=== PATIENT | female | born 1990 | race American Indian/Alaskan Native ===

== ENCOUNTER 2017-12-11 09:17 | Emergency (ER) | payer MEDICAID, OTHER ==
[2017-12-11 09:29] VITALS: O2SAT 100
[2017-12-11 10:26] LABS: BASO # 0.1 K/uL (0.0-0.2); EOS # 0.1 K/uL (0.0-0.7); HEMOGLOBIN 12.4 g/dL (11.0-16.0); LYMPH # 1.9 K/uL (1.0-4.3); LYMPH % 25.7 % (20.0-40.0); MEAN CELL VOLUME 98.3 fL (81.0-99.0); MEAN CORPUSCULAR HEMOGLOBIN 33.1 pg (27.0-31.0); MEAN CORPUSCULAR HGB CONC 33.7 g/dL (33.0-37.0); MEAN PLATELET VOLUME 8.2 fL (7.2-11.7); MONO # 0.7 K/uL (0.0-0.8); MONO % 10.1 % (0.0-10.0); NEUT # 4.5 K/uL (1.8-7.0); NEUT % 61.2 % (50.0-75.0); NRBC % 0.2 % (0.0-2.0); RBC 3.74 Mil/uL (3.80-5.20); RED CELL DISTRIBUTION WIDTH 13.7 % (11.5-14.5); WHITE BLOOD COUNT 7.3 K/uL (4.8-10.8)
[2017-12-11 10:30] LABS: SQUAMOUS EPITHIAL 5 /hpf (0-5); URINE BILIRUBIN NEGATIVE (NEGATIVE); URINE BLOOD 1+ (NEGATIVE); URINE CLARITY Hazy (Clear); URINE COLOR Yellow (YELLOW); URINE GLUCOSE (UA) NORMAL (Normal); URINE LEUKOCYTE ESTERASE TRACE Leu/uL (Negative); URINE PROTEIN NEGATIVE (NEGATIVE); URINE UROBILINOGEN NORMAL mg/dL (0.2-1.0)
[2017-12-11 10:42] LABS: BLOOD UREA NITROGEN 10 mg/dL (7-17); CALCIUM 9.1 mg/dl (8.6-10.4); GFR NON-AFRICAN AMERICAN > 60
[2017-12-11 10:48] LABS: ALB/GLOB RATIO 1.1 (1.0-2.1); ALBUMIN 4.3 g/dL (3.5-5.0); ALT/SGPT 9 U/L (9-52); AST/SGOT 34 U/L (14-36)
--- NOTE | 2017-12-11 12:30 | C.PDOC ---
History Of Present Illness 27 year old female presents to the ED for evaluation of lower abdominal pain that has been intermittent for 2 weeks. Patient states her pain is sometimes sharp and worsened last night. Patient notes symptoms feel similar to when she had a prior ectopic . Patient denies fever, chills, nausea, vomiting, diarrhea, back pain, changes in eating habits. LMP 10/10/17. Patient is [id number] Time Seen by Provider: 12/11/17 10:26 Chief Complaint (Nursing): Abdominal Pain History Per: Patient History/Exam Limitations: no limitations Onset/Duration Of Symptoms: Intermittent Episodes (two weeks ) Current Symptoms Are (Timing): Worse Location Of Pain/Discomfort: Other (lower abdomen ) Radiation Of Pain To:: None Quality Of Discomfort: "Pain" Associated Symptoms: denies: Fever, Chills, Nausea, Vomiting Additional History Per: Patient Abnormal Vaginal Bleeding: No Last Menstral Period: 10/09/17 : 4 Para: 1 Miscarriage: 2 Past Medical History Reviewed: Historical Data, Nursing Documentation, Vital Signs Vital Signs: Last Vital Signs Temp 97.9 F 12/11/17 11:38 Pulse 86 12/11/17 11:38 Resp 20 12/11/17 11:38 BP 105/65 12/11/17 11:38 Pulse Ox 100 12/11/17 11:38 - Medical History PMH: No Chronic Diseases Surgical History: No Surg Hx Family History: States: Unknown Family Hx - Social History Hx Tobacco Use: No Hx Alcohol Use: No Hx Substance Use: No - Immunization History Hx Tetanus Toxoid Vaccination: No Hx Influenza Vaccination: No Hx Pneumococcal Vaccination: No Review Of Systems Constitutional: Negative for: Fever, Chills Eyes: Negative for: Pain ENT: Negative for: Ear Pain Cardiovascular: Negative for: Chest Pain, Palpitations Respiratory: Negative for: Cough, Shortness of Breath Gastrointestinal: Positive for: Abdominal Pain. Negative for: Nausea, Vomiting, Diarrhea Musculoskeletal: Negative for: Neck Pain, Back Pain Skin: Negative for: Rash, Lesions Neurological: Negative for: Weakness, Numbness Physical Exam - Physical Exam Appears: Non-toxic, No Acute Distress Skin: Normal Color, Warm, Dry, No Rash Head: Atraumatic, Normacephalic Eye(s): bilateral: Normal Inspection Oral Mucosa: Moist Neck: Supple Chest: Symmetrical, No Deformity, No Tenderness Cardiovascular: Rhythm Regular, No Murmur Respiratory: Normal Breath Sounds, No Rales, No Rhonchi, No Wheezing Gastrointestinal/Abdominal: Soft, Tenderness (lower, right>left ), Guarding (mild ), No Rebound Extremity: Normal ROM, Capillary Refill (less than 2 seconds ), No Swelling Neurological/Psych: Oriented x3, Normal Speech, Normal Cognition, Normal Motor Gait: Steady ED Course And Treatment - Laboratory Results Result Diagrams: 12/11/17 10:16 12/11/17 10:16 O2 Sat by Pulse Oximetry: 100 (on RA ) Pulse Ox Interpretation: Normal Medical Decision Making Medical Decision Making: Progress: Bloodwork, urinalysis, OB Transvaginal Ultrasound ordered and reviewed. Tylenol PO given. Patient was found to have (+) ectopic . The case was discussed with Dr. Neville (OBGYN oncjulian) who has evaluated the patient at bedside and states the patient will need admission to the OR. At 1530, the patient is now refusing admission and wishes to the leave the hospital. Risks of leaving were explained to the patient and OBGYN has discussed case with patient as well. The patient is still refusing. Disposition - Disposition Disposition: AGAINST MEDICAL ADVICE Disposition Time: 15:30 Condition: STABLE Additional Instructions: D/W pt in detail the severity of her condition of possible cornual ectopic . Pt did not want to consent to surgery and is going to sign out against medical advice. Pt has childcare issues and states she will come to the hospital in the morning. D/W pt again about her condition and she still did not want to stay. 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 - Scribe Statement The provider has reviewed the documentation as recorded by the Scribe (Lilly Mathews) All medical record entries made by the Scribe were at my direction and personally dictated by me. I have reviewed the chart and agree that the record accurately reflects my personal performance of the history, physical exam, medical decision making, and the department course for this patient. I have also personally directed, reviewed, and agree with the discharge instructions and disposition.
[2017-12-11 13:00] VITALS: RESP 18; TEMP 99.2
--- NOTE | 2017-12-11 13:58 | US ---
Date of service: 12/11/2017 HISTORY: pelvic pain, r/o ectopic. Last which appears reported 10/10/2017 suggesting an estimated gestational age of 8 weeks 6 days. COMPARISON: None available. TECHNIQUE: Transabdominal and transvaginal pelvic ultrasound was performed with longitudinal and transverse images submitted for interpretation. FINDINGS: UTERUS: Measures 10.1 x 5.5 x 7.7 cm. Uterus is mildly enlarged and anteverted. Irregular hypervascular changes are identified at the left side of the myometrium superiorly, where the left fallopian tube would join. Circular hyperechoic tissue is appreciated with questionable fluid seen centrally and additional soft tissue. This abnormal soft tissue measures 3.1 x 3.2 x 3.3 cm with an irregular cystic core measuring 0.7 x 1.5 x 1.1 cm, mean diameter 1.1 cm. This hyperechoic tissue is hypervascular on color per ultrasound. No pole is definitive or yolk sac within this cystic core. No intrauterine gestation is appreciated within the endometrial cavity in this suspicious for an ectopic gestation at the lateral cornua/junction with left fallopian tube year old. Further clinical correlation is recommended. ENDOMETRIUM: Measures 7.6 mm in diameter. Nonfocal but no intrauterine gestation identified in the endometrial cavity. CERVIX: A nabothian cyst is identified at the cervix posteriorly in with the cervix normal in length at 3.3 cm. Closed internal os. RIGHT OVARY: Measures 2.81.6 x 2.7 cm. No solid mass. Normal flow. LEFT OVARY: Measures 3.6 x 2.3 x 3.8 cm. No solid mass. Normal flow. 1.8 cm cyst is identified in the left ovary likely reflecting corpus luteum cyst. FREE FLUID: Likely physiologic fluid is seen the cul-de-sac inferiorly. OTHER FINDINGS: None. IMPRESSION: Findings suspicious for an ectopic gestation at the lateral left cornua/left fallopian tubal junction. No intrauterine gestation identified at the endometrial cavity. The ovaries identified separate from this suspicious ectopic pattern. Further clinical correlation is advised. Trace fluid seen the cul-de-sac which is anechoic and not reflective of hemoperitoneum. Please see discussion above. Findings discussed with Dr. Mai on with written down and read back verification 12/11/2017 1:40 p.m..
[2017-12-11 15:19] LABS: INR 1.4; PROTHROMBIN TIME 15.5 SECONDS (9.7-12.2)
[2017-12-11 15:33] VITALS: BP 133/85; PULSE 84
--- NOTE | 2017-12-11 17:02 | C.PDOC ---
History Of Present Illness 27 yo presenting to the ED with abdominal pain for several weeks and missed menses since Oct. Pt found to have suspected ectopic and possible cornual ectopic. Beta >40K Time Seen by Provider: 12/11/17 10:26 Chief Complaint (Nursing): Abdominal Pain History Per: Patient Pain Scale Rating Of: 7 Location Of Pain/Discomfort: RLQ Past Medical History Vital Signs: Last Vital Signs Temp 99.2 F 12/11/17 15:32 Pulse 84 12/11/17 15:32 Resp 18 12/11/17 15:32 BP 133/85 12/11/17 15:32 Pulse Ox 100 12/11/17 15:39 - Medical History PMH: No Chronic Diseases Surgical History: No Surg Hx Family History: States: Unknown Family Hx - Social History Hx Tobacco Use: No Hx Alcohol Use: No Hx Substance Use: No - Immunization History Hx Tetanus Toxoid Vaccination: No Hx Influenza Vaccination: No Hx Pneumococcal Vaccination: No Physical Exam - Physical Exam Additional Physical Exam Comments: Left Lower quadrant pain to deep palpation ED Course And Treatment - Laboratory Results Result Diagrams: 12/11/17 10:16 12/11/17 10:16 O2 Sat by Pulse Oximetry: 100 (on RA ) Disposition Discussed With : Efe Neville - Disposition Disposition Time: 00:45 Condition: STABLE Additional Instructions: D/W pt in detail the severity of her condition of possible cornual ectopic . Pt did not want to consent to surgery and is going to sign out against medical advice. Pt has childcare issues and states she will come to the hospital in the morning. D/W pt again about her condition and she still did not want to stay. Pt signed out AMA Forms: [employer] (Dutch) - Clinical Impression Clinical Impression: Ectopic
== END 2017-12-11 15:35 | disposition left against medical advice (07) ==
LOC: C.ER 09:17 → C.SDS 14:45 → C.ER 15:35
DX: O00.90 Unspecified ectopic pregnancy without intrauterine pregnancy (principal)

== ENCOUNTER 2017-12-12 11:32 | Emergency (ER) | payer OTHER ==
[2017-12-12 13:05] LABS: BASO % 0.5 % (0.0-2.0); EOS # 0.1 K/uL (0.0-0.7); EOS % 0.9 % (0.0-4.0); HEMOGLOBIN 12.7 g/dL (11.0-16.0); LYMPH # 2.9 K/uL (1.0-4.3); LYMPH % 33.9 % (20.0-40.0); MEAN CELL VOLUME 99.3 fL (81.0-99.0); MEAN CORPUSCULAR HEMOGLOBIN 33.1 pg (27.0-31.0); MEAN CORPUSCULAR HGB CONC 33.4 g/dL (33.0-37.0); MONO # 1.1 K/uL (0.0-0.8); MONO % 12.2 % (0.0-10.0); NEUT # 4.5 K/uL (1.8-7.0); NEUT % 52.5 % (50.0-75.0); NRBC % 0.1 % (0.0-2.0); RBC 3.85 Mil/uL (3.80-5.20); RED CELL DISTRIBUTION WIDTH 13.8 % (11.5-14.5); WHITE BLOOD COUNT 8.6 K/uL (4.8-10.8)
[2017-12-12] MEDS ORDERED: Sodium Chloride 0.9% 1,000 ML IV STA (13:11)
[2017-12-12] MEDS ORDERED: Sodium Chloride 0.9% 1,000 ML ONE (13:16)
[2017-12-12] MEDS ORDERED: Morphine 4 MG/ML VIAL ONE (13:16)
[2017-12-12] MEDS ORDERED: Methotrexate 50 mg/2 ml Inj IM ONE (14:19)
[2017-12-12] MEDS ORDERED: DiphenhydrAMINE 50 mg/ml Inj IVP STA (14:36)
--- NOTE | 2017-12-12 15:11 | C.PDOC ---
History Of Present Illness The patient is a 27 year old female who was evaluated in the ED yesterday for complaints of sharp abdominal pain that had been intermittent for 2 weeks. Patient underwent ultrasound, which showed she was positive for an ectopic gesta tion at the lateral left cornua/left fallopian tubal junction. Case was discussed with Dr. Neville (LIEUTENANT/DEPUTY online banking specialist), who evaluated the patient at bedside and stated that patient needed admission to the OR. Patient refused, and left the hospital against medical advice. Patient returns for re-evaluation today. Prior to coming to the ED, [facility] from yesterday. Patient states she was told that her ectopic does not necessaily require surgery, and she can try other medicinal alternative such as Methotrexate. Patient presents to the ED, insisting she was to speak with the OBGYN online banking specialist to discuss this. She states h er pain has improved; she was able to sleep well during the night and did not experience any pain or bleeding this morning. Patient denies fever, chills, nausea, vomiting, back pain. Patient's LMP was 10/10/17; she is [id number] Time Seen by Provider: 12/12/17 11:49 Chief Complaint (Nursing): Female Genitourinary History Per: Patient History/Exam Limitations: no limitations Onset/Duration Of Symptoms: Intermittent Episodes (2 weeks ) Current Symptoms Are (Timing): Better Quality Of Discomfort: "Pain" Associated Symptoms: denies: Fever, Chills, Nausea, Vomiting, Back Pain Additional History Per: Patient Abnormal Vaginal Bleeding: No Last Menstral Period: 10/10/2017 : 4 Para: 1 Miscarriage: 2 Past Medical History Reviewed: Historical Data, Nursing Documentation, Vital Signs Vital Signs: Last Vital Signs Temp 98.0 F 12/12/17 14:44 Pulse 58 L 12/12/17 14:44 Resp 20 12/12/17 14:44 BP 128/68 12/12/17 14:44 Pulse Ox 99 12/12/17 14:44 - Medical History PMH: No Chronic Diseases Surgical History: No Surg Hx Family History: States: Unknown Family Hx - Social History Hx Tobacco Use: No Hx Alcohol Use: No Hx Substance Use: No - Immunization History Hx Tetanus Toxoid Vaccination: No Hx Influenza Vaccination: No Hx Pneumococcal Vaccination: No Review Of Systems Constitutional: Negative for: Fever, Chills Gastrointestinal: Negative for: Nausea, Vomiting Genitourinary: Negative for: Vaginal Bleeding Physical Exam - Physical Exam Appears: Non-toxic, No Acute Distress Skin: Normal Color, Warm, Dry Head: Atraumatic, Normacephalic Eye(s): bilateral: Normal Inspection Oral Mucosa: Moist Neck: Supple Chest: Symmetrical, No Deformity, No Tenderness Cardiovascular: Rhythm Regular, No Murmur Respiratory: Normal Breath Sounds, No Rales, No Rhonchi, No Wheezing Gastrointestinal/Abdominal: Soft, No Tenderness, No Guarding, No Rebound Extremity: Normal ROM, Capillary Refill (less than 2 seconds ) Neurological/Psych: Oriented x3, Normal Speech, Normal Cognition ED Course And Treatment - Laboratory Results Result Diagrams: 12/12/17 12:50 O2 Sat by Pulse Oximetry: 99 (on RA) Pulse Ox Interpretation: Normal Medical Decision Making Medical Decision Making: Progress: CBC and Beta-HCG Quantitative tests ordered and reviewed. [place] [address].00. Case discussed with Dr. Godfrey (OBGYN online banking specialist), who states she will evaluate the patient at bedside. Prior to Dr. Godfrey reaching bedside, patient developed a sharp pain to her abdominal region, was given Morphine IV that causes pruritis and skin rash. Benadryl IV given with improvement. Dr. Godfrey then presented to the ED to evaluate the patient. Dr. Godfrey explained to the patient that considering the condition of her ectopic , treatment may include hysterectomy. Patient defers surgical intervention and elects medical management. Dr. Godfrey explained to the patient that she has a very high beta HCG count, her fetus has grown in size, and there is a high risk associated with the medical approach. Patient understands these risks and elects medical intervention. Dr. Godfrey presented patient with refusal of treatment, patient signed consent forms. Methotrexate IM was ordered by Dr. Godfrey. Patient will be discharged home. Patient is advised to return to the ED in 4 d ays for a repeat beta-HCG count and evaluation by OBGYN. Patient is advised to return to the ED immediately if any new symptoms develop or if her symptoms worsen. Disposition - Disposition Disposition: HOME/ ROUTINE Disposition Time: 16:07 Condition: STABLE Additional Instructions: Follow up with OBGYN. return to ED in 4 days to repeat beta HCG and to be re- evaluated by OBGYN. Return to ED immediately if feel worse. 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 - Scribe Statement The provider has reviewed the documentation as recorded by the Scribe (Lilly Mathews) All medical record entries made by the Scribe were at my direction and personally dictated by me. I have reviewed the chart and agree that the record accurately reflects my personal performance of the history, physical exam, medical decision making, and the department course for this patient. I have also personally directed, reviewed, and agree with the discharge instructions and disposition.
[2017-12-12 16:16] VITALS: BP 102/66; PULSE 66; RESP 15; TEMP 98.6
[2017-12-12 18:41] VITALS: O2SAT 99
--- NOTE | 2017-12-13 20:19 | CP.PCM.CON ---
History of Present Illness - History of Present Illness History of Present Illness: History Of Present Illness 27 year old female and with a normal LMP 10/10/17. Pt was evaluated in the ED yesterday for complaints of sharp abdominal pain on and off for about 2 weeks. Patient was diagnosed with a left Cornual Ectopic . Case was discussed with Dr Neville (HOT BREAD BAKER configuration manager), who evaluated the patient and recomended to the patient to be admitted for Surgical treatment. Patient refused, and left the hospital against medical advice. Patient returned for re-evaluation today and insisting on Medical treatment. She gave a History of a previous ectopic that resolved well with Medication. Prior to coming to the ED, [facility] and she was told that her ectopic does not necessaily require surgery, and she can try other medicinal alternative such as Methotrexate. Pt further states that her pain is intermittent and of short duration and places the pain at 2/10 at times and 8- 9/10 at other times but admit that has not worsen; she was able to sleep well during the night and did not experience any pain or bleeding this morning. Patient denies fever, chills, nausea, vomiting, back pain. Review of Systems - Review of Systems Systems not reviewed;Unavailable: Psychotic All systems: reviewed and no additional remarkable complaints except - Constitutional Constitutional: As Per HPI - Cardiovascular Additional comments: No Chest pain or palpitations - Respiratory Respiratory: As Per HPI Additional comments: No cough or chest pains - Gastrointestinal Gastrointestinal: As Per HPI, Abdominal Pain Additional comments: No N, V or D - Genitourinary Additional comments: Denies urinary or bowel complaints - Reproductive: Female Reproductive:Female: As Per HPI Past Patient History - Infectious Disease Hx of Infectious Diseases: None - Past Medical History & Family History Past Medical History?: No Past Family History: Reviewed and not pertinent - Past Social History Smoking Status: Never Smoked Chewing Tobacco Use: No Cigar Use: No Alcohol: None - PSYCHIATRIC Hx Substance Use: No - SURGICAL HISTORY Hx Surgeries: No - ANESTHESIA Hx Anesthesia: No Meds Allergies/Adverse Reactions: Allergies Allergy/AdvReac Type Severity Reaction Status Date / Time No Known Allergies Allergy Verified 12/12/17 11:33 Physical Exam - Constitutional Appears: No Acute Distress - Head Exam Head Exam: NORMAL INSPECTION - Neck Exam Neck exam: Positive for: Full Rom, Normal Inspection - Respiratory Exam Respiratory Exam: Clear to Auscultation Bilateral, NORMAL BREATHING PATTERN - Cardiovascular Exam Cardiovascular Exam: REGULAR RHYTHM - GI/Abdominal Exam GI & Abdominal Exam: Normal Bowel Sounds Additional comments: No rebound or guarding. Mild tenderness on palpation - Rectal Exam Rectal Exam: Deferred - Exam External exam: NORMAL EXTERNAL EXAM Speculum exam: NORMAL SPECULUM EXAM Additional comments: Mild CMT. Uterus about 8-10 weks size, + fullnes and tenderness over L adnexa and Negative exam over R adnexa - Extremities Exam Extremities exam: Positive for: normal inspection - Back Exam Back exam: NORMAL INSPECTION Additional comments: Ambulating without difficulty Results - Vital Signs Recent Vital Signs: Last Vital Signs Temp 98.6 F 12/12/17 16:16 Pulse 66 12/12/17 16:16 Resp 15 12/12/17 16:16 BP 102/66 12/12/17 16:16 Pulse Ox 99 12/12/17 18:41 - Labs Result Diagrams: 12/12/17 12:50 - Imaging and Cardiology US - abdomen Status: Image reviewed by me Assessment & Plan - Assessment and Plan (Free Text) Assessment: 1. 27 yo female wirh a + BHCG > 40.000 on 12/11 2. Probable Left Cornual ectopic , per US 3. Hx of a previous ectopic on her left side and treated medically. One and 1 TOP 4. Hemodynamically stable and intermitent pain with a relative benign abdominal and pelvic exam 5. Continues to decline Surgical treatment and even more after procedure, risks and possible complications reviewed with her including the possibility of a Hysterectomy, Blood transfusion, and other major surgeries. 6. Requested Medical treatment with Methotrexate and I explained the severity of her condition at [facility], including the risks of ruptured ectopic with severe bleeding and again a possible Hysterectomy, among other surgeries. and other serious complications including life threatening condition. Pt verbalized understanding and agreed to sign the refusal of recomended treatment form and to take all responsibility on her own hands. Pt also agreed to return inmediately if pain worsens, any lightheadness, dizziness or severe bleeding. Declines Rx for pain medication and stated that she will take Tylenol that so far has worked for her. Plan: After all consents and forms signed and reviewed again, pt received one IM dose of Methotrexate as calculated by Pharmacy. After observed for a while more, she was discharged home with instructions and in stable and satisfactory condition - Date & Time Date: 12/12/17 Time: 21:00
== END 2017-12-12 14:44 | disposition home or self-care (01) ==
LOC: C.ER 11:32
DX: O00.90 Unspecified ectopic pregnancy without intrauterine pregnancy (principal); Z3A.00 Weeks of gestation of pregnancy not specified
CPT/HCPCS: 84702; 85025; 96361; 96372; 96374; 99284; J2270; J7030; J9250

== ENCOUNTER 2017-12-16 10:18 | Emergency (ER) | payer OTHER ==
[2017-12-16 10:23] VITALS: RESP 18; O2SAT 100
--- NOTE | 2017-12-16 11:47 | C.PDOC ---
History Of Present Illness 27-year-old female, presents to the emergency department for repeat beta. Patient was found to have an ectopic , seen several days ago and opted to have Methotrexate instead of surgery. Patient denies any nausea/vomiting, fever or chills. No other complaints at this time Time Seen by Provider: 12/16/17 10:25 Chief Complaint (Nursing): Medical Clearance History Per: Patient History/Exam Limitations: no limitations Current Symptoms Are (Timing): Still Present Past Medical History Reviewed: Historical Data, Nursing Documentation, Vital Signs Vital Signs: Last Vital Signs Temp 98.9 F 12/16/17 10:21 Pulse 73 12/16/17 10:21 Resp 18 12/16/17 10:21 BP 125/79 12/16/17 10:21 Pulse Ox 100 12/16/17 10:21 Family History: States: No Known Family Hx - Social History Hx Tobacco Use: No Hx Alcohol Use: No Hx Substance Use: No - Immunization History Hx Tetanus Toxoid Vaccination: No Hx Influenza Vaccination: No Hx Pneumococcal Vaccination: No Review Of Systems Constitutional: Negative for: Fever Gastrointestinal: Negative for: Nausea, Vomiting Musculoskeletal: Negative for: Back Pain Skin: Negative for: Rash Neurological: Negative for: Weakness, Numbness, Headache, Dizziness Physical Exam - Physical Exam Appears: Non-toxic, No Acute Distress Skin: Normal Color, Warm, Dry, No Rash Head: Atraumatic Eye(s): bilateral: Normal Inspection Nose: Normal Oral Mucosa: Moist Lips: Normal Appearing Neck: Normal ROM Cardiovascular: Rhythm Regular, No Murmur Respiratory: Normal Breath Sounds, No Accessory Muscle Use Gastrointestinal/Abdominal: Soft, No Tenderness Extremity: Normal ROM, No Deformity Neurological/Psych: Oriented x3, Normal Speech ED Course And Treatment O2 Sat by Pulse Oximetry: 100 Pulse Ox Interpretation: Normal (RA) Medical Decision Making Medical Decision Making: Old records reviewed, the patient was seen here for lower abd pain and pelvic pa in, had labs and ultrasound ordered which revealed ectopic . The patient had refused surgery and wanted Methotraxate. B. ta on 12/09 was [id number] [place] [id number] Leela HOPKINS refrigeration plant operator who states she would like to speak with patient in regards to surgical intervention. SANDEEP has evaluated the patient at bedside and the patient is still refusing surgery. AMA form was obtained and signed. Methotraxate was given again. And was given strict instruction to return to the ED in 3 days for re-eval. Disposition - Disposition Referrals: [facility] [Outside] [facility] [Outside] Disposition: AGAINST MEDICAL ADVICE Disposition Time: 14:29 Condition: STABLE Additional Instructions: Follow up with the medical doctor within 1-2 days. Return if worsened. Instructions: Ectopic (DC) Forms: [employer] (Slovak) - Clinical Impression Clinical Impression: Ectopic - Scribe Statement The provider has reviewed the documentation as recorded by the Scribe (Kwame Wilson) All medical record entries made by the Scribe were at my direction and personally dictated by me. I have reviewed the chart and agree that the record accurately reflects my personal performance of the history, physical exam, medical decision making, and the department course for this patient. I have also personally directed, reviewed, and agree with the discharge instructions and disposition.
[2017-12-16 12:18] VITALS: BP 120/76; PULSE 72; TEMP 97.7
--- NOTE | 2017-12-16 13:24 | C.PDOC ---
History Of Present Illness 27yo presents to ER for follow up B-HCG(day4) after methotrexate administration on 12/12/17. Pt denies vaginal bleeding and abdominal pain at this time. Pt was seen on 12/11/17 with abdominal pain but refused surgery at that time and left against medical advice. She returned to the ED on 12/12/17 with abdominal pain at which time she still refused surgical intervention but agreed to methotrexate administration. Pt was counseled again today regarding the severity of her current situation and the risks associated. Time Seen by Provider: 12/16/17 10:25 Chief Complaint (Nursing): Medical Clearance Past Medical History Vital Signs: Last Vital Signs Temp 97.7 F 12/16/17 12:17 Pulse 72 12/16/17 12:17 Resp 18 12/16/17 12:17 BP 120/76 12/16/17 12:17 Pulse Ox 100 12/16/17 12:17 Family History: States: No Known Family Hx, Unknown Family Hx - Social History Hx Tobacco Use: No Hx Alcohol Use: No Hx Substance Use: No - Immunization History Hx Tetanus Toxoid Vaccination: No Hx Influenza Vaccination: No Hx Pneumococcal Vaccination: No Physical Exam - Physical Exam Appears: Well, No Acute Distress Skin: Normal Color Gastrointestinal/Abdominal: Soft, Tenderness ED Course And Treatment O2 Sat by Pulse Oximetry: 100 Medical Decision Making Medical Decision Making: A/p: 27yo with left interstitial B-HCG 40,547(12/11)--> 46,547(12/12)-->41,713(12/16) Given methotrexate 12/12- Pt counseled extensively for surgical intervention at this time. I explained the efficacy of methotrexate is diminished with elevated B-HCG. 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 PT still at this time declines surgical intervention. Ectopic precautions discussed with patient second dose of methotrexate given today Pt to sign out against medical advice. Alberto Fuller D.O Disposition - Disposition Forms: [employer] ([place])
[2017-12-16] MEDS ORDERED: Methotrexate 50 mg/2 ml Inj IM STA ×3 (13:26→13:42)
== END 2017-12-16 14:44 | disposition left against medical advice (07) ==
LOC: C.ER 10:18
DX: O00.90 Unspecified ectopic pregnancy without intrauterine pregnancy (principal)
CPT/HCPCS: 36415; 84702; 96372; 99282; J9250